=== PATIENT | male | born 1945 | race Caucasian/White ===

== ENCOUNTER 2022-05-28 16:32 | Inpatient (IN) | payer MEDICARE ==
[~2022-05-28] VITALS: Ht 175.3 cm; Wt 81.6 kg
[2022-05-28] MEDS ORDERED: SODIUM CHLORIDE 0.9% 1000ML 1,000 ML IV STA (16:42)
[2022-05-28] MEDS ORDERED: ACETAMINOPHEN 325 MG TAB PO STA (16:42)
[2022-05-28] MEDS ORDERED: CEFTRIAXONE 1 GM VIAL IV ONE (17:00)
[2022-05-28] MEDS ORDERED: SIMVASTATIN40 MG PO (17:27)
[2022-05-28] MEDS ORDERED: ACETAMINOPHEN 325 MG TAB ONE (17:54)
[2022-05-28] MEDS ORDERED: CEFTRIAXONE 1 GM VIAL ONE (17:55)
[2022-05-28] MEDS ORDERED: SODIUM CHLORIDE 0.9% 500ML 500 ML ONE (17:55)
[2022-05-28] MEDS ORDERED: ONDANSETRON HCL INJ 2MG/ML 2ML 2 MG/ML VIAL IV PRN (18:15)
[2022-05-28] MEDS ORDERED: ACETAMINOPHEN 325 MG TAB PO PRN (18:15)
[2022-05-28] MEDS ORDERED: DIPHENHYDRAMINE HCL INJ 50 MG/ML VIAL IV PRN (18:15)
[2022-05-28] MEDS ORDERED: IBUPROFEN 600 MG TAB PO STA (18:35)
[2022-05-28] MEDS ORDERED: IBUPROFEN 600 MG TAB ONE (18:52)
[2022-05-28 20:00] VITALS: BP 91/50
[2022-05-28 20:50] VITALS: BP 91/50
[2022-05-28] MEDS: DEXTROSE 5%/LACTATED RINGERS 1,000 ML IV SCH (20:55)
[2022-05-28 21:14] VITALS: BP 91/50
[2022-05-28] MEDS ORDERED: OMEGA 3 FISH O1 EACH PO (22:44)
[2022-05-29] VITALS (8 sets, daily range): BP systolic 92–127; BP diastolic 49–87
[2022-05-29 06:36] LABS: BASOPHILS % 0.1 % (0.0-1.0); EOSINOPHILS % 0.1 % (0.0-6.0); HEMATOCRIT 38.3 % (38.2-49.6); HEMOGLOBIN 13.2 g/dL (14.0-18.0); LYMPHOCYTES # (AUTO) 0.7 (1.0-3.2); LYMPHOCYTES % 10.7 % (18.0-39.1); MEAN CORPUSCULAR HEMOGLOBIN 35.5 pg (28-32); MEAN CORPUSCULAR HGB CONC 34.5 g/dL (31-35); MONOCYTES # (AUTO) 0.7 (0.2-0.8); MONOCYTES % 10.1 % (4.4-11.3); NEUTROPHILS # (AUTO) 5.5 (2.1-6.9); NEUTROPHILS % 78.6 % (38.7-80.0); PLATELET COUNT 110 x10e3/uL (140-360); RED BLOOD COUNT 3.72 x10e6/uL (4.3-5.7); RED CELL DISTRIBUTION WIDTH 12.9 % (11.7-14.4)
[2022-05-29 07:13] LABS: ANION GAP 10.9 mmol/L (8-16); CALCIUM 8.5 mg/dL (8.4-10.2); CREATININE, SERUM 1.1 mg/dL (0.72-1.25); POTASSIUM 3.9 mmol/L (3.5-5.1)
[2022-05-29] MEDS ORDERED: FAMOTIDINE 20 MG TAB PO SCH (07:30)
[2022-05-29] MEDS: DEXTROSE 5%/LACTATED RINGERS 1,000 ML IV SCH (09:43)
[2022-05-29] MEDS ORDERED: ACETAMINOPHEN/CODEINE 300MG - 30MG TAB PO PRN (12:00)
[2022-05-29] MEDS ORDERED: DIPHENHYDRAMINE HCL 25 MG CAP PO PRN (12:00)
[2022-05-29] MEDS ORDERED: DEXAMETHASONE 4 MG TAB PO ONE (12:30)
[2022-05-29] MEDS: GUAIFENESIN/CODEINE 5 ML LIQD PO PRN ×2 (13:21→22:05)
[2022-05-29] MEDS ORDERED: ENOXAPARIN SOD INJ 40 MG/0.4 ML SYR SC SCH (17:00)
[2022-05-29] MEDS ORDERED: REMDESIVIR 100MG 200 MG in SODIUM CHLORIDE 0.9% 100 ML IV ONE (17:45)
[2022-05-29] MEDS: ENOXAPARIN SOD INJ 40 MG/0.4 ML SYR SC SCH (18:00)
[2022-05-29] MEDS: CEFTRIAXONE 2 GM in SODIUM CHLORIDE 0.9% 100 ML IV SCH (20:13)
[2022-05-29] MEDS ORDERED: TEMAZEPAM 15 MG CAP PO PRN (21:00)
[2022-05-30] VITALS (8 sets, daily range): BP systolic 105–113; BP diastolic 56–63
[2022-05-30] MEDS: GUAIFENESIN/CODEINE 5 ML LIQD PO PRN ×4 (02:04→22:02)
[2022-05-30 08:48] LABS: BASOPHILS % 0.1 % (0.0-1.0); HEMATOCRIT 39.9 % (38.2-49.6); HEMOGLOBIN 13.2 g/dL (14.0-18.0); LYMPHOCYTES # (AUTO) 1.1 (1.0-3.2); LYMPHOCYTES % 13.2 % (18.0-39.1); MEAN CORPUSCULAR HEMOGLOBIN 33.5 pg (28-32); MEAN CORPUSCULAR HGB CONC 33.1 g/dL (31-35); MEAN CORPUSCULAR VOLUME 101.3 fL (81-99); MONOCYTES # (AUTO) 0.9 (0.2-0.8); MONOCYTES % 10.6 % (4.4-11.3); NEUTROPHILS # (AUTO) 6.4 (2.1-6.9); PLATELET COUNT 114 x10e3/uL (140-360); RED BLOOD COUNT 3.94 x10e6/uL (4.3-5.7); RED CELL DISTRIBUTION WIDTH 12.5 % (11.7-14.4)
[2022-05-30] MEDS: ENOXAPARIN SOD INJ 40 MG/0.4 ML SYR SC SCH ×2 (08:51→20:27)
[2022-05-30] MEDS: CEFTRIAXONE 2 GM in SODIUM CHLORIDE 0.9% 100 ML IV SCH (08:51)
[2022-05-30] MEDS: DEXAMETHASONE SOD PHOS 10 MG/1 ML VIAL IV SCH (08:52)
[2022-05-30 09:06] LABS: ALBUMIN/GLOBULIN RATIO 0.9 (0.8-2.0); ANION GAP 12.3 mmol/L (8-16); CALCIUM 8.4 mg/dL (8.4-10.2); CREATININE, SERUM 1.03 mg/dL (0.72-1.25); POTASSIUM 4.3 mmol/L (3.5-5.1)
[2022-05-30] MEDS: REMDESIVIR 100MG 100 MG in SODIUM CHLORIDE 0.9% 100 ML IV SCH (14:34)
[2022-05-31] VITALS (8 sets, daily range): BP systolic 101–126; BP diastolic 55–64
[2022-05-31 07:30] LABS: BASOPHILS % 0.1 % (0.0-1.0); HEMOGLOBIN 13.1 g/dL (14.0-18.0); LYMPHOCYTES # (AUTO) 1.3 (1.0-3.2); LYMPHOCYTES % 14.3 % (18.0-39.1); MEAN CORPUSCULAR HEMOGLOBIN 33.9 pg (28-32); MEAN CORPUSCULAR HGB CONC 34.5 g/dL (31-35); MEAN CORPUSCULAR VOLUME 98.2 fL (81-99); MONOCYTES # (AUTO) 0.8 (0.2-0.8); MONOCYTES % 8.9 % (4.4-11.3); NEUTROPHILS # (AUTO) 6.9 (2.1-6.9); NEUTROPHILS % 76.1 % (38.7-80.0); PLATELET COUNT 113 x10e3/uL (140-360); RED BLOOD COUNT 3.87 x10e6/uL (4.3-5.7); RED CELL DISTRIBUTION WIDTH 12.3 % (11.7-14.4)
[2022-05-31 07:50] LABS: ALBUMIN 2.9 g/dL (3.5-5.0); ANION GAP 9.2 mmol/L (8-16); CALCIUM 8.4 mg/dL (8.4-10.2); CREATININE, SERUM 0.95 mg/dL (0.72-1.25); POTASSIUM 4.2 mmol/L (3.5-5.1)
[2022-05-31] MEDS: CEFTRIAXONE 2 GM in SODIUM CHLORIDE 0.9% 100 ML IV SCH (08:53)
[2022-05-31] MEDS: ENOXAPARIN SOD INJ 40 MG/0.4 ML SYR SC SCH ×2 (08:54→21:26)
[2022-05-31] MEDS: DEXAMETHASONE SOD PHOS 10 MG/1 ML VIAL IV SCH (08:54)
[2022-05-31] MEDS ORDERED: ONDANSETRON HCL 4 MG ORAL DISINTEGRATING TAB PO PRN (11:00)
[2022-05-31] MEDS: REMDESIVIR 100MG 100 MG in SODIUM CHLORIDE 0.9% 100 ML IV SCH (13:46)
[2022-05-31] MEDS: GUAIFENESIN/CODEINE 5 ML LIQD PO PRN (22:15)
[2022-06-01] VITALS (8 sets, daily range): BP systolic 100–140; BP diastolic 51–75
[2022-06-01 08:47] LABS: HEMATOCRIT 38.7 % (38.2-49.6); HEMOGLOBIN 13.5 g/dL (14.0-18.0); LYMPHOCYTES # (AUTO) 1.2 (1.0-3.2); LYMPHOCYTES % 14.6 % (18.0-39.1); MEAN CORPUSCULAR HEMOGLOBIN 34.1 pg (28-32); MEAN CORPUSCULAR HGB CONC 34.9 g/dL (31-35); MEAN CORPUSCULAR VOLUME 97.7 fL (81-99); MONOCYTES # (AUTO) 0.6 (0.2-0.8); MONOCYTES % 7.6 % (4.4-11.3); NEUTROPHILS # (AUTO) 6.2 (2.1-6.9); NEUTROPHILS % 77.4 % (38.7-80.0); PLATELET COUNT 128 x10e3/uL (140-360); RED BLOOD COUNT 3.96 x10e6/uL (4.3-5.7)
[2022-06-01 09:13] LABS: ANION GAP 11.8 mmol/L (8-16); CALCIUM 8.4 mg/dL (8.4-10.2); CREATININE, SERUM 0.85 mg/dL (0.72-1.25); POTASSIUM 3.8 mmol/L (3.5-5.1)
[2022-06-01] MEDS: CEFTRIAXONE 2 GM in SODIUM CHLORIDE 0.9% 100 ML IV SCH (09:15)
[2022-06-01] MEDS: ENOXAPARIN SOD INJ 40 MG/0.4 ML SYR SC SCH ×2 (09:16→23:37)
[2022-06-01] MEDS: DEXAMETHASONE SOD PHOS 10 MG/1 ML VIAL IV SCH (09:16)
[2022-06-01] MEDS ORDERED: SODIUM CHLORIDE 0.9% 0 ML ONE (14:25)
[2022-06-01] MEDS: REMDESIVIR 100MG 100 MG in SODIUM CHLORIDE 0.9% 100 ML IV SCH (14:29)
[2022-06-02] VITALS: BP 126/67
[2022-06-02 04:15] VITALS: BP 125/67
[2022-06-02 08:37] VITALS: BP 123/64
[2022-06-02 08:49] VITALS: BP 123/64
[2022-06-02] MEDS: DEXAMETHASONE SOD PHOS 10 MG/1 ML VIAL IV SCH (09:04)
[2022-06-02] MEDS: ENOXAPARIN SOD INJ 40 MG/0.4 ML SYR SC SCH (09:04)
[2022-06-02] MEDS: CEFTRIAXONE 2 GM in SODIUM CHLORIDE 0.9% 100 ML IV SCH (09:04)
[2022-06-02 09:49] LABS: HEMATOCRIT 41.2 % (38.2-49.6); HEMOGLOBIN 14.1 g/dL (14.0-18.0); LYMPHOCYTES # (AUTO) 1.7 (1.0-3.2); LYMPHOCYTES % 23.7 % (18.0-39.1); MEAN CORPUSCULAR HEMOGLOBIN 33.4 pg (28-32); MEAN CORPUSCULAR HGB CONC 34.2 g/dL (31-35); MEAN CORPUSCULAR VOLUME 97.6 fL (81-99); MONOCYTES # (AUTO) 0.7 (0.2-0.8); MONOCYTES % 9.2 % (4.4-11.3); NEUTROPHILS # (AUTO) 4.8 (2.1-6.9); NEUTROPHILS % 66.8 % (38.7-80.0); PLATELET COUNT 139 x10e3/uL (140-360); RED BLOOD COUNT 4.22 x10e6/uL (4.3-5.7); RED CELL DISTRIBUTION WIDTH 12.1 % (11.7-14.4)
[2022-06-02 10:00] LABS: ALBUMIN 3.2 g/dL (3.5-5.0); ALBUMIN/GLOBULIN RATIO 1.1 (0.8-2.0); CALCIUM 8.8 mg/dL (8.4-10.2); CREATININE, SERUM 0.96 mg/dL (0.72-1.25)
[2022-06-02 12:04] VITALS: BP 133/70
[2022-06-02] MEDS: REMDESIVIR 100MG 100 MG in SODIUM CHLORIDE 0.9% 100 ML IV SCH (14:02)
== END 2022-06-02 15:15 | disposition home or self-care (01) | DRG 177 ==
LOC: FSED 16:42 → ERHOLD 18:06 → MED/SURG3 19:44
PROVIDERS: ADMIT Internal Medicine; ATTEND Internal Medicine
PROC: XW033E5 Introduction of Remdesivir Anti-infective into Peripheral Vein, Percutaneous Approach, New Technology Group 5 (ICD-10-PCS; principal; 2022-05-30)
PROC: 8E0ZXY6 Isolation (ICD-10-PCS; 2022-05-30)
PROC: 3E0333Z Introduction of Anti-inflammatory into Peripheral Vein, Percutaneous Approach (ICD-10-PCS; 2022-05-30)
DX: U07.1 COVID-19 (principal); J15.9 Unspecified bacterial pneumonia; J96.01 Acute respiratory failure with hypoxia; E78.5 Hyperlipidemia, unspecified; E04.1 Nontoxic single thyroid nodule; D69.6 Thrombocytopenia, unspecified; Z86.73 Personal history of transient ischemic attack (TIA), and cerebral infarction without residual deficits
CPT/HCPCS: 36415; 70450; 71045; 71250; 80048; 80053; 81003; 82553; 83605; 84484; 85025; 87040; 87086; 87400; 87420; 93005; 94799; 96361; 99284; J0248; J0456; J0696; J1100; J1650; J7040; J7050

== ENCOUNTER 2024-01-21 13:56 | Emergency (ER) | payer MEDICARE ==
[~2024-01-21] VITALS: Ht 175.3 cm; Wt 81.6 kg
[~2024-01-21 13:56] MED LIST: OMEGA 3 FISH O1 EACH PO; SIMVASTATIN40 MG PO
[2024-01-21 14:09] VITALS: PULSE 57; RESP 18; TEMP 98.2; O2SAT 98
[2024-01-21] MEDS: LIDOCAINE HCL 1% LOCAL INJ 20 ML VIAL INJ ONE (14:22)
[2024-01-21] MEDS: TETANUS/DIPHTHERIA TOX ADULT 0.5 ML SYR IM ONE (14:23)
[2024-01-21] MEDS ORDERED: TETANUS/DIPHTHERIA TOX ADULT 0.5 ML SYR ONE (14:25)
== END 2024-01-21 14:53 | disposition home or self-care (01) ==
LOC: ER 14:06
DX: S61.213A Laceration without foreign body of left middle finger without damage to nail, initial encounter (principal); W27.0XXA Contact with workbench tool, initial encounter; Y92.89 Other specified places as the place of occurrence of the external cause; E78.5 Hyperlipidemia, unspecified
CPT/HCPCS: 12001; 90471; 90714; 99283; J2003

== ENCOUNTER 2024-01-29 10:11 | Emergency (ER) | payer MEDICARE ==
[~2024-01-29] VITALS: Ht 172.7 cm; Wt 81.6 kg
[2024-01-29 10:35] VITALS: PULSE 54; RESP 15; TEMP 98.1; O2SAT 97
== END 2024-01-29 11:00 | disposition home or self-care (01) ==
LOC: ER 10:30
DX: Z48.02 Encounter for removal of sutures (principal)
CPT/HCPCS: 99282; S0630

== ENCOUNTER 2024-07-19 12:14 | Emergency (ER) | payer MEDICARE ==
[~2024-07-19] VITALS: Ht 172.7 cm; Wt 79.4 kg
[2024-07-19 12:22] VITALS: TEMP 98.1
[2024-07-19] MEDS: SODIUM CHLORIDE 0.9% 1000ML 1,000 ML IV ONE (12:40)
[2024-07-19] MEDS: ONDANSETRON HCL INJ 2MG/ML 2ML 2 MG/ML VIAL IV STA (12:40)
[2024-07-19] MEDS: KETOROLAC TROMETHAMINE 30 MG/ML VIAL IV STA (12:40)
[2024-07-19] MEDS ORDERED: IOPAMIDOL 370 MG/ML 100 ML INFUS..BTL INJ ONE (13:01)
[2024-07-19 15:07] VITALS: PULSE 59; RESP 18
[2024-07-19] MEDS ORDERED: ACETAMINOPHEN-1 EAC3 PO (15:21)
[2024-07-19 15:32] VITALS: BP 131/63; PULSE 59; RESP 18; O2SAT 95
== END 2024-07-19 15:30 | disposition home or self-care (01) ==
LOC: FSED 12:31
DX: R10.32 Left lower quadrant pain (principal); R31.9 Hematuria, unspecified; N13.2 Hydronephrosis with renal and ureteral calculous obstruction; R11.2 Nausea with vomiting, unspecified; E78.5 Hyperlipidemia, unspecified
CPT/HCPCS: 74177; 80048; 80076; 81003; 85025; 99284; J1885; J2405; J7030; Q9967